=== PATIENT | male | born 1980 | race Caucasian/White ===

== ENCOUNTER 2018-04-13 07:03 | Day surgery (SDC) | payer OTHER ==
[~2018-04-13] VITALS: Ht 185.4 cm; Wt 154.2 kg
[2018-04-13] MEDS ORDERED: LISI30TA6 PO (07:57)
[2018-04-13] MEDS ORDERED: CLON0.1T42 PO (07:57)
[2018-04-13] MEDS ORDERED: CARV25TA PO (07:57)
[2018-04-13] MEDS ORDERED: LIDOCAINE 2% 1000 MG/50 ML VIAL INJ ONE (08:35)
[2018-04-13] MEDS: fentaNYL 0.05 MG/ML VIAL ONE ×2 (09:30→09:45)
== END 2018-04-13 10:25 | disposition home or self-care (01) ==
LOC: MDS 07:03 → MMU 07:04 → MDS 10:25
PROVIDERS: ATTEND Internal Medicine Gastroenterology
DX: B18.2 Chronic viral hepatitis C (principal); I10 Essential (primary) hypertension; F17.210 Nicotine dependence, cigarettes, uncomplicated; E66.01 Morbid (severe) obesity due to excess calories; Z68.41 Body mass index [BMI] 40.0-44.9, adult; Z98.84 Bariatric surgery status; Z79.899 Other long term (current) drug therapy; Z98.890 Other specified postprocedural states
CPT/HCPCS: 47000; 76942; J2001; J3010; Q0092